=== PATIENT | male | born 1995 | race African-American/Black ===

== ENCOUNTER 2018-06-20 16:12 | Emergency (ER) | payer SELFPAY ==
[~2018-06-20] VITALS: Ht 180.3 cm; Wt 120.7 kg
[2018-06-20 16:22] VITALS: BP 143/76
--- NOTE | 2018-06-20 16:57 | NUR ---
LUNCH RN: Report received, urine sample collected and sent to lab.
[2018-06-20 17:29] LABS: MICROSCOPIC NOT IND
[2018-06-20 17:40] LABS: CULTURE INDICATED? NO
[2018-06-20] MEDS ORDERED: metroNIDAZOLE 500 MG TABLET ONE (18:54)
[2018-06-20] MEDS ORDERED: metroNIDAZOLE 500 MG TABLET PO ONE (19:00)
== END 2018-06-20 19:05 | disposition home or self-care (01) ==
LOC: ED 18:45
DX: A59.03 Trichomonal cystitis and urethritis (principal)
CPT/HCPCS: 81003; 87491; 87591; 99283

== ENCOUNTER 2018-08-29 14:48 | Emergency (ER) | payer MEDICAID ==
[~2018-08-29] VITALS: Ht 180.3 cm; Wt 128.0 kg
[2018-08-29] MEDS ORDERED: ASPIRIN 81 MG TABLET CHEW PO ONE (15:00)
[2018-08-29 15:21] LABS: MEAN CORPUSCULAR HGB CONC 33.3 g/dL (33.2-36.2); MEAN CORPUSCULAR VOLUME 84.1 fL (81-97); MEAN PLATELET VOLUME 7.7 fL (7.4-10.4); PLATELET COUNT 365 x10^3/uL (130-400); RED BLOOD COUNT 5.77 x10^6/uL (4.38-5.82); RED CELL DISTRIBUTION WIDTH 13.1 % (9.4-14.8)
[2018-08-29] MEDS ORDERED: ASPIRIN 81 MG TABLET CHEW ONE (15:23)
[2018-08-29 15:34] LABS: ALBUMIN 4.3 g/dL (3.4-5.0); ANION GAP 7 mmol/L (5-15); CALCIUM 9.7 mg/dL (8.5-10.1); CHLORIDE 105 mmol/L (98-107); CREATININE 1.38 mg/dL (0.7-1.3)
[2018-08-29 15:37] LABS: TROPONIN I < 0.015 ng/mL (0.000-0.045)
[2018-08-29 15:51] LABS: BASOPHILS # (AUTO) 0.02 x10^3/uL (0-0.3); BASOPHILS % (AUTO) 1 % (0-1); EOSINOPHILS % (AUTO) 4 % (1-7); LYMPHOCYTES # (AUTO) 1.26 x10^3/uL (1-6.1); LYMPHOCYTES % (AUTO) 51 % (22-44); MD SCAN; MONOCYTES # (AUTO) 0.34 x10^3/uL (0-1.4); MONOCYTES % (AUTO) 14 % (2-9); NEUTROPHILS # (AUTO) 0.75 x10^3/uL (1.8-8.0); NEUTROPHILS % (AUTO) 30 % (42-75)
[2018-08-29 15:57] VITALS: BP 150/82
== END 2018-08-29 16:54 | disposition home or self-care (01) ==
LOC: ED 16:48
DX: R07.89 Other chest pain (principal); D72.819 Decreased white blood cell count, unspecified
CPT/HCPCS: 36415; 71045; 80048; 82040; 83880; 84484; 85025; 93005; 99284

== ENCOUNTER 2019-07-29 00:30 | Emergency (ER) | payer SELFPAY ==
[~2019-07-29] VITALS: Ht 180.3 cm; Wt 142.9 kg
--- NOTE | 2019-07-29 01:38 | NUR ---
pt to room from lobby
[2019-07-29] MEDS ORDERED: PHENAZOPYRIDINE 200 MG TABLET PO ONE (02:00)
[2019-07-29] MEDS ORDERED: PHENAZOPYRIDINE 200 MG TABLET ONE (02:39)
[2019-07-29 02:44] LABS: CULTURE INDICATED? YES; MICROSCOPIC INDICATED
== END 2019-07-29 03:16 | disposition home or self-care (01) ==
LOC: ED 02:14
DX: N30.00 Acute cystitis without hematuria (principal); R30.0 Dysuria
CPT/HCPCS: 81001; 87086; 87491; 87591; 99283

== ENCOUNTER 2019-11-03 20:19 | Emergency (ER) | payer MEDICAID, OTHER ==
[~2019-11-03] VITALS: Ht 182.9 cm; Wt 146.6 kg
--- NOTE | 2019-11-03 20:45 | NUR ---
PT A&OX4, RESP EVEN & UNLABORED, SPEECH CLEAR, SKIN WNL. C/O CP (POINTS TO EPIGASTIC AREA) RADIATING TO BACK X 3 DAYS. PAIN WORSENS AFTER EATING. NO MEDS TAKEN FOR SX. DENIES ULCER HX, N/V, DIARRHEA, CONSTIPATION, COUGH.
[2019-11-03] MEDS ORDERED: MAALOX/HYOSCYAMINE/LIDOCAINE 45 ML BTL ONE (21:11)
--- NOTE | 2019-11-03 21:18 | NUR ---
LABS DRAWN, EKG AND CXR COMPLETE. PT GIVEN GI COCKTAIL. WILL REASSESS. NSR - ST ON DATABASE SUPPORT.
[2019-11-03 21:21] LABS: BASOPHILS # (AUTO) 0.02 x10^3/uL (0-0.1); BASOPHILS % (AUTO) 1 % (0-1); EOSINOPHILS # (AUTO) 0.08 x10^3/uL (0-0.4); EOSINOPHILS % (AUTO) 2 % (1-7); LYMPHOCYTES # (AUTO) 1.61 x10^3/uL (1-3.4); LYMPHOCYTES % (AUTO) 47 % (22-44); MD NO; MEAN CORPUSCULAR HEMOGLOBIN 28.4 pg (27.5-34.5); MEAN CORPUSCULAR HGB CONC 33.3 g/dL (33.2-36.2); MEAN CORPUSCULAR VOLUME 85.4 fL (81-97); MEAN PLATELET VOLUME 7.9 fL (7.4-10.4); MONOCYTES # (AUTO) 0.29 x10^3/uL (0.2-0.8); MONOCYTES % (AUTO) 9 % (2-9); NEUTROPHILS % (AUTO) 41 % (42-75); PLATELET COUNT 403 x10^3/uL (130-400); RED BLOOD COUNT 5.43 x10^6/uL (4.38-5.82); RED CELL DISTRIBUTION WIDTH 13.2 % (9.4-14.8)
[2019-11-03 21:27] LABS: ALANINE AMINOTRANSFERASE 67 U/L (12-78); ANION GAP 6 mmol/L (5-15); CALCIUM 8.9 mg/dL (8.5-10.1); CHLORIDE 104 mmol/L (98-107); CREATININE 1.38 mg/dL (0.7-1.3)
[2019-11-03] MEDS ORDERED: MAALOX/HYOSCYAMINE/LIDOCAINE 45 ML BTL PO ONE (21:30)
[2019-11-03 21:31] LABS: ALKALINE PHOSPHATASE 83 U/L (45-117); BILIRUBIN,TOTAL 0.6 mg/dL (0.2-1.0); TOTAL PROTEIN 8.2 g/dL (6.4-8.2); TROPONIN I < 0.015 ng/mL (0.000-0.045)
--- NOTE | 2019-11-03 21:50 | NUR ---
PT REPORTS FEELING BETTER AFTER GI COCKTAIL.
[2019-11-03 22:30] VITALS: BP 99/78
== END 2019-11-03 22:31 | disposition home or self-care (01) ==
LOC: ED 21:25
DX: I49.1 Atrial premature depolarization (principal); R07.9 Chest pain, unspecified; R06.02 Shortness of breath; R94.31 Abnormal electrocardiogram [ECG] [EKG]
CPT/HCPCS: 36415; 71045; 80053; 83690; 84484; 85025; 85379; 93005; 99285

== ENCOUNTER 2019-11-06 18:43 | Emergency (ER) | payer OTHER ==
[~2019-11-06] VITALS: Ht 182.9 cm; Wt 144.1 kg
[2019-11-06] MEDS ORDERED: ASPIRIN 81 MG TABLET CHEW PO ONE (20:00)
[2019-11-06 20:21] LABS: BASOPHILS # (AUTO) 0.02 x10^3/uL (0-0.1); BASOPHILS % (AUTO) 1 % (0-1); EOSINOPHILS # (AUTO) 0.06 x10^3/uL (0-0.4); EOSINOPHILS % (AUTO) 2 % (1-7); LYMPHOCYTES # (AUTO) 1.35 x10^3/uL (1-3.4); LYMPHOCYTES % (AUTO) 43 % (22-44); MD NO; MEAN CORPUSCULAR HEMOGLOBIN 28.5 pg (27.5-34.5); MEAN CORPUSCULAR HGB CONC 33.7 g/dL (33.2-36.2); MEAN CORPUSCULAR VOLUME 84.6 fL (81-97); MEAN PLATELET VOLUME 8.3 fL (7.4-10.4); MONOCYTES # (AUTO) 0.24 x10^3/uL (0.2-0.8); MONOCYTES % (AUTO) 8 % (2-9); NEUTROPHILS # (AUTO) 1.45 x10^3/uL (1.8-6.8); NEUTROPHILS % (AUTO) 47 % (42-75); PLATELET COUNT 362 x10^3/uL (130-400); RED BLOOD COUNT 5.34 x10^6/uL (4.38-5.82)
[2019-11-06 20:29] LABS: ALANINE AMINOTRANSFERASE 66 U/L (12-78); ALBUMIN 4.1 g/dL (3.4-5.0); ANION GAP 7 mmol/L (5-15); CALCIUM 9.2 mg/dL (8.5-10.1); CHLORIDE 107 mmol/L (98-107)
[2019-11-06 20:33] LABS: ALKALINE PHOSPHATASE 70 U/L (45-117); BILIRUBIN,TOTAL 0.5 mg/dL (0.2-1.0); CREATININE 1.26 mg/dL (0.7-1.3); TOTAL PROTEIN 8.1 g/dL (6.4-8.2); TROPONIN I < 0.015 ng/mL (0.000-0.045)
[2019-11-06] MEDS ORDERED: ASPIRIN 81 MG TABLET CHEW ONE (20:35)
--- NOTE | 2019-11-06 20:39 | NUR ---
PT HERE FOR LEFT SIDED CHEST PAIN X 1 WEEK THAT IS NOW INVOLVING HIS LEFT ARM. PT WAS SEEN HERE 2 DAYS AGO FOR SAME WITH NO IMPROVEMENT. PT GIVEN 162 MG ASA. VSS. WAITING FOR LAB RESULTS. PT IN NAD. CALL LIGHT IN REACH
[2019-11-06 22:09] VITALS: BP 144/78
== END 2019-11-06 23:00 | disposition home or self-care (01) ==
LOC: ED 22:00
DX: R07.89 Other chest pain (principal); K21.9 Gastro-esophageal reflux disease without esophagitis; I10 Essential (primary) hypertension; R94.31 Abnormal electrocardiogram [ECG] [EKG]
CPT/HCPCS: 36415; 71045; 76700; 80053; 83690; 84484; 85025; 93005; 99285

== ENCOUNTER 2020-10-21 00:22 | Emergency (ER) | payer SELFPAY ==
[~2020-10-21] VITALS: Ht 180.3 cm; Wt 149.0 kg
[2020-10-21] MEDS ORDERED: MICROFIBRILLAR COLLAGEN 1 GM TP ONE ×2 (01:00→01:02)
[2020-10-21] MEDS ORDERED: DIPH,PERTUSS(ACELL),TET VAC/PF 0.5 ML IM-VACC ONE ×2 (01:00→01:19)
[2020-10-21] MEDS ORDERED: LIDOCAINE-MPF 1%, 5ML INFIL ONE (01:00)
[2020-10-21] MEDS ORDERED: MICROFIBRILLAR COLLAGEN 0.5GM/PACK TP ONE (01:00)
[2020-10-21 01:27] VITALS: BP 143/81
== END 2020-10-21 01:33 | disposition home or self-care (01) ==
LOC: ED 01:10
DX: S61.201A Unspecified open wound of left index finger without damage to nail, initial encounter (principal); I10 Essential (primary) hypertension; R94.31 Abnormal electrocardiogram [ECG] [EKG]; W26.9XXA Contact with unspecified sharp object(s), initial encounter; Y92.009 Unspecified place in unspecified non-institutional (private) residence as the place of occurrence of the external cause; Y99.8 Other external cause status
CPT/HCPCS: 90471; 90715; 93005; 99283